=== PATIENT | female | born 1990 | race Caucasian/White ===

== ENCOUNTER 2022-06-02 16:56 | Emergency (ER) | payer BC, MEDICAID, OTHER, SELFPAY ==
[2022-06-02 17:12] VITALS: BP 135/88; PULSE 87
[2022-06-02] MEDS ORDERED: HYDROmorphone 1 MG/ML Syringe IM ONE (17:35)
== END 2022-06-02 18:15 | disposition home or self-care (01) ==
LOC: JD.ED 16:56
DX: M25.511 Pain in right shoulder (principal); Z88.5 Allergy status to narcotic agent; Z88.1 Allergy status to other antibiotic agents; Z86.16 Personal history of COVID-19; Z90.49 Acquired absence of other specified parts of digestive tract
CPT/HCPCS: 96372; 99283; J1170; 99282

== ENCOUNTER 2022-06-12 11:34 | Emergency (ER) | payer BC ==
[2022-06-12 12:43] VITALS: BP 123/96; PULSE 75
[2022-06-12] MEDS ORDERED: Acetaminophen/oxyCODONE 325-5 MG Tab PO ONE (14:19)
== END 2022-06-12 14:20 | disposition home or self-care (01) ==
LOC: JD.ED 11:34
DX: G89.18 Other acute postprocedural pain (principal); M25.511 Pain in right shoulder; Z88.5 Allergy status to narcotic agent; Z88.8 Allergy status to other drugs, medicaments and biological substances; Z88.1 Allergy status to other antibiotic agents; Z86.16 Personal history of COVID-19
CPT/HCPCS: 99283; A9270